=== PATIENT | male | born 1980 | race Caucasian/White ===

== ENCOUNTER 2018-06-02 10:19 | Emergency (ER) | payer SELFPAY ==
[2018-06-02 10:44] VITALS: BP 165/105
--- NOTE | 2018-06-02 10:47 | ED Physician Documentation ---
Male Genitourinary Problems - HISTORIAN Historian: patient - HPI Stated Complaint: left scrotal pain/swelling Chief Complaint: Male Genitourinary Problems Additional Information: Patient present to ED with a 6 month history of intermittent left scrotal pain/swelling. Patient states he had slipped getting out of the bath tub 6 months ago and experienced intermittent left groin pain since then. Two days ago he lifted some rolls of carpet at work and now has worse left groin/left scrotal pain. He also states he has bilateral lower extremity tingling/pain which has been present for about 2 months. He is DM1 and has not been taking his meds due to lack of funds. Patient reports blood sugars consistently over 500. Onset: other (6 months ago) Duration: continues in ED Context: lifting Severity: mild - Associated Symptoms Problems Urinating: denies: frequent urination, discomfort w/ urination, urgency w/ urination, pain w/ urination Testicular Pain: L testicle Penile Pain: No Penile Swelling: No Inguinal Mass: No Flank Pain: none Abdominal Pain: none - Sexual History Sexual History: non-contributory - ROS CONST: denies: fever GI/: denies: nausea, vomiting MS/SKIN/LYMPH: denies: leg swelling CVS/RESP: denies: chest pain, shortness of breath EYES/ENT: none - PAST HX Past History: diabetes Type 1 Cardiac Disease: none Surgeries/Procedures: none Allergies/Adverse Reactions: Allergies Allergy/AdvReac Type Severity Reaction Status Date / Time Penicillins Allergy Verified 06/02/18 10:44 Home Medications: Ambulatory Orders Medication Instructions Recorded Insulin Glargine,Hum.rec.anlog 20 units SQ HS 06/02/18 [Lantus] - SOCIAL HX Smoking History: cigarettes, greater than 1 pack/day Alcohol Use: none Drug Use: none - FAMILY HX Family History: none - VITAL SIGNS Vital Signs: Vital Signs Temp Pulse Resp BP Pulse Ox 103 H 15 165/105 99 06/02/18 10:25 06/02/18 10:25 06/02/18 10:25 06/02/18 10:25 - REVIEWED ASSESSMENTS Nursing Assessment Reviewed: Yes Vitals Reviewed: Yes ED Results Lab/Radiology - Radiology Radiology Impressions: Report Submission Date: Jun 02, 2018 11:36:56 AM LEAD SALES CONSULTANT Patient Study Name: BETHANY CASSIDY Date: Jun 02, 2018 10:53:14 AM LEAD SALES CONSULTANT Modality Type: US Gender: M Description: US SCROTUM CONTENTS : 76 Institution: [facility] Physician: GILBERT ADAME Examination: Ultrasound testicle History: Left scrotal pain/swelling Comparison exams: None provided Findings: Right testicle measures 4.4 x 2.2 x 1.8 cm. Left testicle measures 3.5 x 2.3 x 3.2 cm. Normal homogeneous echogenicity centrally. No mass. No cyst. Normal flow centrally on color analysis. Normal Doppler waveforms. Right epididymitis without irregularity. Left epididymal head cyst measuring 1.1 x 0.9 x 0.8 cm. Impression: No intratesticular mass or cyst. No torsion. Left epididymal head cyst/spermatocele. Electronically signed on Jun 02, 2018 11:36:56 AM LEAD SALES CONSULTANT by: Mike Burleson - Orders Orders: ED Orders Category Date Time Status US SCROTUM COMPLETE [US SCROTUM & CONTENTS] [US] Stat Exams 06/02/18 Taken UA W/MICRO IF INDICATED Routine Lab 06/02/18 11:12 Ordered Male Genitourinary Problems - EXAM General Appearance: no acute distress, alert Abdomen: non-tender. No: tenderness Genitals: nml inspection, testicles nml palp., testicular tenderness (left), circumcised, examined while standing. No: scrotal swelling, hernia mass, inguinal lymphadenopathy Cremasteric Reflexes: strong EENT: NANO Neck: nml inspection Respiratory: no resp distress, chest non-tender, breath sounds normal CVS: reg rate & rhythm, heart sounds normal Back: No: CVA tenderness Rectal: non-tender Extremities: normal range of motion Neuro/Psych: oriented X3 Skin: warm/dry Discharge Clincal Impression: Spermatocele of epididymis, single Additional Instructions: 1. Tylenol and/or Ibuprofen as needed for pain. These may be taken together at the same time for better pain control. 2. Follow up with Felisa Choi as soon as possible for diabetes supplies/establish care 3. Return to ER for new or worsening symptoms Condition: Stable Disposition: 01 HOME, SELF-CARE Decision to Admit: NO Date of Decison to Admit: 06/02/18 Decision Time: 11:45
--- NOTE | 2018-06-02 11:56 | Diagnostic Imaging Report ---
GILBERT ADAME [facility] [id number] [facility] [address] [address] Report Submission Date: Jun 02, 2018 11:36:56 AM INVESTOR RELATIONS ANALYST Patient Study Name: BETHANY CASSIDY Date: Jun 02, 2018 10:53:14 AM INVESTOR RELATIONS ANALYST Modality Type: US Gender: M Description: US SCROTUM CONTENTS : 76 Institution: [facility] Physician: GILBERT ADAME Examination: Ultrasound testicle History: Left scrotal pain/swelling Comparison exams: None provided Findings: Right testicle measures 4.4 x 2.2 x 1.8 cm. Left testicle measures 3.5 x 2.3 x 3.2 cm. Normal homogeneous echogenicity centrally. No mass. No cyst. Normal flow centrally on color analysis. Normal Doppler waveforms. Right epididymitis without irregularity. Left epididymal head cyst measuring 1.1 x 0.9 x 0.8 cm. Impression: No intratesticular mass or cyst. No torsion. Left epididymal head cyst/spermatocele. Electronically signed on Jun 02, 2018 11:36:56 AM INVESTOR RELATIONS ANALYST by: Mike MADERA
[2018-06-02 15:27] LABS: APPEARANCE,URINE CLEAR (CLEAR); COLOR,URINE YELLOW (YELLOW); OCCULT BLOOD,URINE TRACE-INTACT (NEGATIVE); UROBILINOGEN URINE 0.2 Eu (0.2-1.0)
== END 2018-06-02 11:45 | disposition home or self-care (01) ==
LOC: ED 10:19
DX: N43.41 Spermatocele of epididymis, single (principal)
CPT/HCPCS: 76870; 81002; 99282; 99283